=== PATIENT | male | born 1950 | race Caucasian/White ===

== ENCOUNTER → 2017-03-24 | Outpatient (CLI) | payer MEDICARE, OTHER ==
--- NOTE | 2017-03-24 14:28 | RADIOLOGY REPORT PS360 ---
ELBOW-RT-3 VIEWS HISTORY: RT ELBOW PAIN ORDERING PHYSICIAN: Maulik Tomas MD PATIENT AGE: 66 years COMPARISON: None FINDINGS: BONY STRUCTURES: No fracture or dislocation. No lytic or blastic change. Normal mineralization. There is a small enthesophyte at the olecranon insertion SOFT TISSUES: Unremarkable. No radio opaque foreign bodies. No displaced fat pad. JOINT SPACE: Well-preserved. No significant arthritic changes evident. IMPRESSION: No acute finding
== END ==
LOC: RAD 13:52
DX: M25.521 Pain in right elbow (principal)